=== PATIENT | male | born 1930 | race Caucasian/White ===

== ENCOUNTER 2017-10-13 14:35 | Inpatient (IN) ==
[2017-10-13] MEDS ORDERED: DIPH/TET/ACEL PERT BOOSTER VACCINE 0.5 ML VIAL IM ONE ×2 (15:03→17:08)
[2017-10-13] MEDS ORDERED: SODIUM CHLORIDE 0.9% 1,000 ML IV STA (15:07)
[2017-10-13 16:02] LABS: Basophils # 0.1 10*3/uL (0.0-0.2); Basophils % 0.7 % (0.0-0.8); Eosinophils # 0.2 10*3/uL (0.0-0.87); Eosinophils % 2.3 % (0.00-10.9); Hematocrit 40.7 VOL% (42.0-52.0); Hemoglobin 13.2 GM/DL (14.0-18.0); Immature Granulocytes % 0.5 %; Immature Granulocytes Absolute 0.04 #; Lymphocytes # 0.7 10*3/uL (1.4-4.0); Lymphocytes % 8.4 % (21.2-54.2); Mean Corpuscular HGB Conc 32.4 GM/DL (32-36); Mean Corpuscular Hemoglobin 32 PG (27-34); Mean Corpuscular Volume 98.8 FL (87-102); Mean Platelet Volume 12.8 FL (9.6-12.0); Monocytes # 0.8 10*3/uL (0.11-0.8); Monocytes % 9.4 % (1.7-12.7); Neutrophils # 6.9 10*3/uL (1.4-7.4); Neutrophils % 78.7 % (38.7-73.9); Platelet Count 110 T/CUMM (130-400); Red Blood Count 4.12 MC/CUMM (3.8-5.5); Red Cell Distribution Width 14.7 % (9.3-17.3); White Blood Count 8.8 T/CUMM (4-12)
[2017-10-13 16:12] LABS: INR 1.1; PT Patient Result 11.5 SECS; Partial Thromboplastin Time 22.2 SECS (0-40)
[2017-10-13 16:23] LABS: Alanine Aminotransferase 18 U/L (16-61); Albumin 3.4 G/DL (3.4-5.0); Alkaline Phosphatase 124 U/L (45-117); Aspartate Amino Transferase 33 U/L (0-37); Blood Urea Nitrogen 29 MG/DL (7-18); Calcium 8.7 MG/DL (8.5-10.1); Glucose 109 MG/DL (74-106); Osmolality,Calculated 289.1 MOS/KG (273-304); Potassium 4.6 MMOL/L (3.5-5.1); Sodium 142 MMOL/L (136-145); Total Protein 6.7 G/DL (6.4-8.3)
[2017-10-13] MEDS ORDERED: ACETAMINOPHEN 325 MG TABLET PO PRN (17:39)
[2017-10-13] MEDS ORDERED: ZALEPLON 5 MG CAPSULE PO PRN (17:39)
[2017-10-13] MEDS ORDERED: ONDANSETRON 4 MG/2 ML VIAL IV PRN (17:39)
[2017-10-13] MEDS: SODIUM CHLORIDE 0.9% 1,000 ML IV SCH (18:05)
[2017-10-13 18:15] LABS: Apearance,Urine CLEAR (Clear); Bilirubin,Urine Negative (Negative); Blood, Urine Negative (Negative); Glucose,Urine (UA) Negative (Negative); Ketones,Urine 5 mg/dL (Negative); Nitrite,Urine Negative (Negative); Protein,Urine Negative; RBC,Urine 1 /HPF (0-4); Urine Color Yellow (Yellow); Urine Specific Gravity 1.013 (1.001-1.035); Urine Urobilinogen < 2.0 EU/DL (0.2-1.0); WBC,Urine <1 /HPF (0-6)
[2017-10-13 18:15] LABS: Magnesium 2.3 MG/DL (1.8-2.4); Thyroid Stimulating Hormone 3.01 uIU/ml (0.358-3.74)
[2017-10-13] MEDS: CARBIDOPA/LEVODOPA CR 25-100 MG TABLET PO SCH (21:33)
[2017-10-13] MEDS: DONEPEZIL 10 MG TABLET PO SCH (21:33)
[2017-10-13] MEDS: PRIMIDONE 50 MG TABLET PO SCH (21:34)
[2017-10-13] MEDS: ENTACAPONE 200 MG TABLET PO SCH (21:34)
[2017-10-14 06:59] LABS: Calcium 7.7 MG/DL (8.5-10.1); Osmolality,Calculated 286.1 MOS/KG (273-304); Risk Ratio 2.22; VLDL CHOLESTEROL 10.6 MG/DL
[2017-10-14] MEDS: CARBIDOPA/LEVODOPA CR 25-100 MG TABLET PO SCH ×4 (10:38→21:56)
[2017-10-14] MEDS: ENTACAPONE 200 MG TABLET PO SCH ×4 (10:39→21:55)
[2017-10-14] MEDS: PANTOPRAZOLE 40 MG TABLET PO SCH (10:39)
[2017-10-14] MEDS: SODIUM CHLORIDE 0.9% 1,000 ML IV SCH ×2 (10:39→21:55)
[2017-10-14] MEDS: CARVEDILOL 3.125 MG TABLET PO SCH (21:55)
[2017-10-14] MEDS: DONEPEZIL 10 MG TABLET PO SCH (21:56)
[2017-10-14] MEDS: PRIMIDONE 50 MG TABLET PO SCH (21:56)
[2017-10-15 06:15] LABS: Basophils % 0.3 % (0.0-0.8); Hemoglobin 11.8 GM/DL (14.0-18.0); Immature Granulocytes % 0.6 %; Immature Granulocytes Absolute 0.09 #; Lymphocytes # 0.7 10*3/uL (1.4-4.0); Lymphocytes % 4.7 % (21.2-54.2); Mean Corpuscular HGB Conc 32.8 GM/DL (32-36); Mean Corpuscular Hemoglobin 31 PG (27-34); Mean Corpuscular Volume 95.5 FL (87-102); Mean Platelet Volume 11.9 FL (9.6-12.0); Monocytes # 1.4 10*3/uL (0.11-0.8); Monocytes % 9.2 % (1.7-12.7); Neutrophils # 13.3 10*3/uL (1.4-7.4); Neutrophils % 85.2 % (38.7-73.9); Platelet Count 164 T/CUMM (130-400); Red Blood Count 3.77 MC/CUMM (3.8-5.5); Red Cell Distribution Width 14.3 % (9.3-17.3); White Blood Count 15.6 T/CUMM (4-12)
[2017-10-15 06:45] LABS: Calcium 8.4 MG/DL (8.5-10.1); Osmolality,Calculated 288.4 MOS/KG (273-304); Potassium 5.2 MMOL/L (3.5-5.1)
[2017-10-15 06:58] LABS: Band Neutrophils 5 % (0-10); Lymphocytes 3 % (20-55); Segmented Neutrophils 83 % (50-85); Total Cells Counted 100
[2017-10-15 06:59] LABS: Hypochromasia 1+; Macrocytosis Slight; Platelet Estimate Adequate
[2017-10-15] MEDS: PANTOPRAZOLE 40 MG TABLET PO SCH (09:08)
[2017-10-15] MEDS: ENTACAPONE 200 MG TABLET PO SCH ×4 (09:08→22:42)
[2017-10-15] MEDS: CARBIDOPA/LEVODOPA CR 25-100 MG TABLET PO SCH ×4 (09:08→22:42)
[2017-10-15] MEDS: CARVEDILOL 3.125 MG TABLET PO SCH ×2 (09:08→22:42)
[2017-10-15 09:43] LABS: Hematocrit 33.6 VOL% (42.0-52.0); Hemoglobin 11.1 GM/DL (14.0-18.0)
[2017-10-15 10:06] LABS: Apearance,Urine Turbid (Clear); Bilirubin,Urine Negative (Negative); Blood, Urine Large mg/dL (Negative); Glucose,Urine (UA) Negative (Negative); Ketones,Urine Negative (Negative); Nitrite,Urine Negative (Negative); Protein,Urine >500 MG/DL; RBC,Urine 6203 /HPF (0-4); Urine Color Red (Yellow); Urine Urobilinogen 0.2 EU/DL (0.2-1.0); WBC,Urine 172 /HPF (0-6)
[2017-10-15] MEDS: cefTRIAXone 1,000 MG in SYRINGE 1 EACH IV SCH (10:37)
[2017-10-15] MEDS: SODIUM CHLORIDE 0.9% 1,000 ML IV SCH (14:52)
[2017-10-15] MEDS: ZINC OXIDE PASTE 113 GM TUBE TOP SCH ×2 (14:52→22:42)
[2017-10-15 16:49] LABS: Hematocrit 30.1 VOL% (42.0-52.0)
[2017-10-15] MEDS: DONEPEZIL 10 MG TABLET PO SCH (22:42)
[2017-10-15] MEDS: PRIMIDONE 50 MG TABLET PO SCH (22:42)
[2017-10-16 01:29] LABS: Hematocrit 28.6 VOL% (42.0-52.0); Hemoglobin 9.4 GM/DL (14.0-18.0)
[2017-10-16 01:30] LABS: Basophils # 0.1 10*3/uL (0.0-0.2); Basophils % 0.4 % (0.0-0.8); Eosinophils # 0.2 10*3/uL (0.0-0.87); Eosinophils % 1.1 % (0.00-10.9); Hematocrit 28.4 VOL% (42.0-52.0); Hemoglobin 9.4 GM/DL (14.0-18.0); Immature Granulocytes % 0.5 %; Immature Granulocytes Absolute 0.07 #; Lymphocytes % 7.3 % (21.2-54.2); Mean Corpuscular HGB Conc 33.1 GM/DL (32-36); Mean Corpuscular Hemoglobin 32 PG (27-34); Mean Corpuscular Volume 95.9 FL (87-102); Mean Platelet Volume 11.7 FL (9.6-12.0); Monocytes # 1.4 10*3/uL (0.11-0.8); Monocytes % 10.4 % (1.7-12.7); Neutrophils % 80.3 % (38.7-73.9); Platelet Count 132 T/CUMM (130-400); Red Blood Count 2.96 MC/CUMM (3.8-5.5); Red Cell Distribution Width 14.6 % (9.3-17.3); White Blood Count 13.6 T/CUMM (4-12)
[2017-10-16 01:48] LABS: Albumin 2.1 G/DL (3.4-5.0); Calcium 7.6 MG/DL (8.5-10.1); Osmolality,Calculated 292.8 MOS/KG (273-304); Phosphorous 3.2 MG/DL (2.5-4.9); Potassium 4.1 MMOL/L (3.5-5.1)
[2017-10-16] MEDS: SODIUM CHLORIDE 0.9% 1,000 ML IV SCH ×2 (04:12→13:48)
[2017-10-16] MEDS: ENTACAPONE 200 MG TABLET PO SCH ×4 (10:09→21:53)
[2017-10-16] MEDS: cefTRIAXone 1,000 MG in SYRINGE 1 EACH IV SCH (10:18)
[2017-10-16] MEDS: PANTOPRAZOLE 40 MG TABLET PO SCH (10:19)
[2017-10-16] MEDS: CARBIDOPA/LEVODOPA CR 25-100 MG TABLET PO SCH ×4 (10:19→21:53)
[2017-10-16] MEDS: CARVEDILOL 3.125 MG TABLET PO SCH ×2 (10:19→21:53)
[2017-10-16] MEDS: ZINC OXIDE PASTE 113 GM TUBE TOP SCH ×2 (10:19→21:53)
[2017-10-16] MEDS: CIPROFLOXACIN INJ 400 MG in PREMIX 1 EACH IV SCH (13:47)
[2017-10-16] MEDS: PRIMIDONE 50 MG TABLET PO SCH (21:52)
[2017-10-16] MEDS: DONEPEZIL 10 MG TABLET PO SCH (21:53)
[2017-10-17] MEDS: CIPROFLOXACIN INJ 400 MG in PREMIX 1 EACH IV SCH ×2 (01:39→14:09)
[2017-10-17 02:48] LABS: Basophils % 0.2 % (0.0-0.8); Eosinophils # 0.2 10*3/uL (0.0-0.87); Eosinophils % 1.7 % (0.00-10.9); Hematocrit 27.4 VOL% (42.0-52.0); Hemoglobin 8.9 GM/DL (14.0-18.0); Immature Granulocytes % 0.5 %; Immature Granulocytes Absolute 0.05 #; Lymphocytes # 1.1 10*3/uL (1.4-4.0); Lymphocytes % 9.9 % (21.2-54.2); Mean Corpuscular HGB Conc 32.5 GM/DL (32-36); Mean Corpuscular Hemoglobin 31 PG (27-34); Mean Corpuscular Volume 96.8 FL (87-102); Mean Platelet Volume 12.9 FL (9.6-12.0); Monocytes % 9.1 % (1.7-12.7); Neutrophils # 8.6 10*3/uL (1.4-7.4); Neutrophils % 78.6 % (38.7-73.9); Platelet Count 117 T/CUMM (130-400); Red Blood Count 2.83 MC/CUMM (3.8-5.5); Red Cell Distribution Width 14.5 % (9.3-17.3); White Blood Count 10.9 T/CUMM (4-12)
[2017-10-17 03:04] LABS: Calcium 7.5 MG/DL (8.5-10.1); Osmolality,Calculated 285.3 MOS/KG (273-304); Potassium 4.1 MMOL/L (3.5-5.1)
[2017-10-17] MEDS: SODIUM CHLORIDE 0.9% 1,000 ML IV SCH ×3 (10:25→11:28)
[2017-10-17] MEDS: ENTACAPONE 200 MG TABLET PO SCH ×4 (10:29→20:52)
[2017-10-17] MEDS: CARVEDILOL 3.125 MG TABLET PO SCH ×2 (10:29→20:52)
[2017-10-17] MEDS: PANTOPRAZOLE 40 MG TABLET PO SCH (10:29)
[2017-10-17] MEDS: CARBIDOPA/LEVODOPA CR 25-100 MG TABLET PO SCH ×4 (10:29→20:52)
[2017-10-17] MEDS: cefTRIAXone 1,000 MG in SYRINGE 1 EACH IV SCH (10:39)
[2017-10-17] MEDS: ZINC OXIDE PASTE 113 GM TUBE TOP SCH ×2 (20:51→20:53)
[2017-10-17] MEDS: DONEPEZIL 10 MG TABLET PO SCH (20:52)
[2017-10-17] MEDS: PRIMIDONE 50 MG TABLET PO SCH (20:52)
[2017-10-18] MEDS: CIPROFLOXACIN INJ 400 MG in PREMIX 1 EACH IV SCH ×2 (00:37→13:56)
[2017-10-18] MEDS: SODIUM CHLORIDE 0.9% 1,000 ML IV SCH ×2 (04:00→21:05)
[2017-10-18 05:01] LABS: Basophils # 0.1 10*3/uL (0.0-0.2); Basophils % 0.6 % (0.0-0.8); Eosinophils # 0.3 10*3/uL (0.0-0.87); Eosinophils % 3.3 % (0.00-10.9); Hematocrit 28.9 VOL% (42.0-52.0); Hemoglobin 9.3 GM/DL (14.0-18.0); Immature Granulocytes % 0.4 %; Immature Granulocytes Absolute 0.03 #; Lymphocytes # 1.1 10*3/uL (1.4-4.0); Lymphocytes % 13.6 % (21.2-54.2); Mean Corpuscular HGB Conc 32.2 GM/DL (32-36); Mean Corpuscular Hemoglobin 31 PG (27-34); Mean Corpuscular Volume 95.7 FL (87-102); Mean Platelet Volume 11.2 FL (9.6-12.0); Monocytes # 0.9 10*3/uL (0.11-0.8); Monocytes % 11.7 % (1.7-12.7); Neutrophils # 5.6 10*3/uL (1.4-7.4); Neutrophils % 70.4 % (38.7-73.9); Platelet Count 157 T/CUMM (130-400); Red Blood Count 3.02 MC/CUMM (3.8-5.5); Red Cell Distribution Width 14.1 % (9.3-17.3); White Blood Count 7.9 T/CUMM (4-12)
[2017-10-18 05:34] LABS: Calcium 7.7 MG/DL (8.5-10.1); Osmolality,Calculated 282.4 MOS/KG (273-304); Potassium 4.1 MMOL/L (3.5-5.1)
[2017-10-18] MEDS: ENTACAPONE 200 MG TABLET PO SCH ×4 (11:11→21:07)
[2017-10-18] MEDS: ZINC OXIDE PASTE 113 GM TUBE TOP SCH ×2 (11:11→21:08)
[2017-10-18] MEDS: CARBIDOPA/LEVODOPA CR 25-100 MG TABLET PO SCH ×4 (11:11→21:07)
[2017-10-18] MEDS: CARVEDILOL 3.125 MG TABLET PO SCH ×2 (11:11→21:07)
[2017-10-18] MEDS: PANTOPRAZOLE 40 MG TABLET PO SCH (11:11)
[2017-10-18] MEDS: cefTRIAXone 1,000 MG in SYRINGE 1 EACH IV SCH (11:12)
[2017-10-18] MEDS ORDERED: TAMSULOSIN 0.4 MG CAPSULE PO SCH (21:00)
[2017-10-18] MEDS: DONEPEZIL 10 MG TABLET PO SCH (21:06)
[2017-10-18] MEDS: PRIMIDONE 50 MG TABLET PO SCH (21:07)
[2017-10-19] MEDS: CIPROFLOXACIN INJ 400 MG in PREMIX 1 EACH IV SCH ×2 (01:55→14:45)
[2017-10-19] MEDS: CARVEDILOL 3.125 MG TABLET PO SCH (09:43)
[2017-10-19] MEDS: ZINC OXIDE PASTE 113 GM TUBE TOP SCH (09:43)
[2017-10-19] MEDS: PANTOPRAZOLE 40 MG TABLET PO SCH (09:43)
[2017-10-19] MEDS: cefTRIAXone 1,000 MG in SYRINGE 1 EACH IV SCH (09:43)
[2017-10-19] MEDS: CARBIDOPA/LEVODOPA CR 25-100 MG TABLET PO SCH ×2 (09:43→14:45)
[2017-10-19] MEDS: ENTACAPONE 200 MG TABLET PO SCH ×2 (09:43→14:45)
[2017-10-19] MEDS: SODIUM CHLORIDE 0.9% 1,000 ML IV SCH (14:52)
[2017-10-19 16:18] VITALS: BP 87/52
== END 2017-10-19 16:40 | DRG 299 ==
LOC: EDUNIT# → EDBD → N.EDINP 14:35 → N.ED 14:35 → SUATTDRO 17:38 → N.3E 19:51 → SUATTDRO 10-15 11:56
PROVIDERS: ADMIT Internal Medicine

== ENCOUNTER 2018-03-21 12:38 | Inpatient (IN) ==
[2018-03-21] MEDS ORDERED: SODIUM CHLORIDE 0.9% 500 ML IV STA (13:22)
[2018-03-21] MEDS ORDERED: SODIUM CHLORIDE 0.9% 250 ML IV STA (14:13)
[2018-03-21 14:25] LABS: Basophils % 0.3 % (0.0-0.8); Hematocrit 32.2 VOL% (42.0-52.0); Hemoglobin 10.2 GM/DL (14.0-18.0); Immature Granulocytes % 0.3 %; Immature Granulocytes Absolute 0.02 #; Lymphocytes # 0.3 10*3/uL (1.4-4.0); Lymphocytes % 3.7 % (21.2-54.2); Mean Corpuscular HGB Conc 31.7 GM/DL (32-36); Mean Corpuscular Hemoglobin 28 PG (27-34); Mean Corpuscular Volume 87.7 FL (87-102); Monocytes # 0.4 10*3/uL (0.11-0.8); Monocytes % 5.3 % (1.7-12.7); Neutrophils # 6.5 10*3/uL (1.4-7.4); Neutrophils % 90.4 % (38.7-73.9); Platelet Count 156 T/CUMM (130-400); Red Blood Count 3.67 MC/CUMM (3.8-5.5); Red Cell Distribution Width 18.5 % (9.3-17.3); White Blood Count 7.2 T/CUMM (4-12)
[2018-03-21 14:52] LABS: Alanine Aminotransferase < 9 U/L (16-61); Albumin 3.1 G/DL (3.4-5.0); Alkaline Phosphatase 113 U/L (45-117); Aspartate Amino Transferase 19 U/L (0-37); Blood Urea Nitrogen 42 MG/DL (7-18); Calcium 8.2 MG/DL (8.5-10.1); Glucose 166 MG/DL (74-106); Osmolality,Calculated 293.4 MOS/KG (273-304); Potassium 3.3 MMOL/L (3.5-5.1); Sodium 140 MMOL/L (136-145); Total Protein 6.7 G/DL (6.4-8.3); Troponin I Only < 0.015 NG/ML (0.00-0.045)
[2018-03-21] MEDS ORDERED: KETOROLAC 30 MG/1 ML VIAL IV STA (15:09)
[2018-03-21 15:27] LABS: Apearance,Urine Cloudy (Clear); Glucose,Urine (UA) Negative (Negative); Ketones,Urine ND mg/dL (Negative); Protein,Urine 100 MG/DL; Urine Color Yellow (Yellow); Urine Specific Gravity 1.005 (1.001-1.035)
[2018-03-21 15:28] LABS: Bilirubin,Urine Negative (Negative); Blood, Urine 50 mg/dL (Negative); Nitrite,Urine Negative (Negative); Squamous Epithelial Cell,Urine Moderate /HPF (0-10); Urine Urobilinogen 0.2 EU/DL (0.2-1.0); WBC,Urine 100-150 /HPF (0-6)
[2018-03-21] MEDS ORDERED: cefTRIAXone 1,000 MG in SODIUM CHLORIDE 0.9% 100 ML IV STA (15:50)
[2018-03-21 16:54] LABS: Lymphocytes 9 % (20-55); Segmented Neutrophils 81 % (50-85); Total Cells Counted 100
[2018-03-21 16:56] LABS: Hypochromasia Slight; Macrocytosis Slight; Platelet Estimate Adequate; Polychromasia Slight
[2018-03-21] MEDS ORDERED: GLUCAGON 1 MG VIAL IM PRN (17:57)
[2018-03-21] MEDS ORDERED: DEXTROSE 50% 25 GM/50 ML VIAL IV PRN (17:57)
[2018-03-21] MEDS ORDERED: ACETAMINOPHEN 325 MG TABLET PO PRN (17:57)
[2018-03-21] MEDS ORDERED: ONDANSETRON 4 MG/2 ML VIAL IV PRN (17:57)
[2018-03-21] MEDS ORDERED: LEVOFLOXACIN INJ 750 MG in PREMIX 1 EACH IV SCH (18:00)
[2018-03-21] MEDS: SODIUM CHLORIDE 0.9% 1,000 ML IV SCH (23:27)
[2018-03-21] MEDS: PIPERACILLIN/TAZOBACTAM 3,375 MG in SODIUM CHLORIDE 0.9% 100 ML IV SCH (23:28)
[2018-03-21] MEDS: CARBIDOPA/LEVODOPA CR 25-100 MG TABLET PO SCH (23:29)
[2018-03-21] MEDS: ASCORBIC ACID 500 MG TABLET PO SCH (23:29)
[2018-03-21] MEDS: TAMSULOSIN 0.4 MG CAPSULE PO SCH (23:29)
[2018-03-21] MEDS: DONEPEZIL 10 MG TABLET PO SCH (23:29)
[2018-03-21] MEDS: FINASTERIDE 5 MG TABLET PO SCH (23:29)
[2018-03-21] MEDS: ENTACAPONE 200 MG TABLET PO SCH (23:29)
[2018-03-21] MEDS: MEMANTINE 10 MG TABLET PO SCH (23:29)
[2018-03-21] MEDS: PRIMIDONE 50 MG TABLET PO SCH (23:30)
[2018-03-21] MEDS: CARVEDILOL 3.125 MG TABLET PO SCH (23:31)
[2018-03-21] MEDS: INSULIN REGULAR 100 UNIT/ML SUBCUT SCH (23:47)
[2018-03-22] MEDS: PIPERACILLIN/TAZOBACTAM 3,375 MG in SODIUM CHLORIDE 0.9% 100 ML IV SCH ×2 (04:58→17:54)
[2018-03-22 07:35] LABS: Basophils % 0.1 % (0.0-0.8); Hematocrit 27.2 VOL% (42.0-52.0); Hemoglobin 8.7 GM/DL (14.0-18.0); Immature Granulocytes % 0.4 %; Immature Granulocytes Absolute 0.03 #; Lymphocytes # 0.6 10*3/uL (1.4-4.0); Lymphocytes % 7.8 % (21.2-54.2); Mean Corpuscular Hemoglobin 28 PG (27-34); Mean Corpuscular Volume 86.3 FL (87-102); Mean Platelet Volume 11.5 FL (9.6-12.0); Monocytes # 1.2 10*3/uL (0.11-0.8); Monocytes % 14.4 % (1.7-12.7); Neutrophils # 6.2 10*3/uL (1.4-7.4); Neutrophils % 77.3 % (38.7-73.9); Platelet Count 131 T/CUMM (130-400); Red Blood Count 3.15 MC/CUMM (3.8-5.5); Red Cell Distribution Width 18.6 % (9.3-17.3)
[2018-03-22] MEDS ORDERED: FUROSEMIDE 40 MG TABLET PO SCH (08:00)
[2018-03-22 08:02] LABS: Potassium 3.1 MMOL/L (3.5-5.1)
[2018-03-22 08:15] LABS: Band Neutrophils 6 % (0-10); Lymphocytes 7 % (20-55); Segmented Neutrophils 79 % (50-85); Total Cells Counted 100
[2018-03-22 08:16] LABS: Hypochromasia Slight
[2018-03-22 08:17] LABS: Spherocytes Few
[2018-03-22 08:18] LABS: Platelet Estimate Decreased
[2018-03-22] MEDS: INSULIN REGULAR 100 UNIT/ML SUBCUT SCH ×4 (08:43→22:03)
[2018-03-22] MEDS: MEMANTINE 10 MG TABLET PO SCH ×2 (08:44→22:03)
[2018-03-22] MEDS: MAGNESIUM OXIDE 400 MG TABLET PO SCH (08:44)
[2018-03-22] MEDS: POTASSIUM CHLORIDE 20 MEQ TABLET PO SCH (08:45)
[2018-03-22] MEDS: PANTOPRAZOLE 40 MG TABLET PO SCH (08:46)
[2018-03-22] MEDS: ENTACAPONE 200 MG TABLET PO SCH ×4 (08:46→22:03)
[2018-03-22] MEDS: CARVEDILOL 3.125 MG TABLET PO SCH ×2 (08:48→22:04)
[2018-03-22] MEDS ORDERED: LEVOFLOXACIN INJ 500 MG in PREMIX 1 EACH IV SCH (09:00)
[2018-03-22] MEDS ORDERED: ALLOPURINOL 300 MG TABLET PO SCH (09:00)
[2018-03-22] MEDS ORDERED: TUBERCULIN SKIN TEST 0.1 ML SYRINGE INTRADERM ONE (12:33)
[2018-03-22] MEDS ORDERED: POTASSIUM CHLORIDE 20 MEQ TABLET PO ONE (12:34)
[2018-03-22] MEDS: ASCORBIC ACID 500 MG TABLET PO SCH ×2 (16:32→22:02)
[2018-03-22] MEDS: APIXABAN 5 MG TABLET PO SCH ×2 (16:55→22:02)
[2018-03-22] MEDS: CARBIDOPA/LEVODOPA CR 25-100 MG TABLET PO SCH ×4 (16:55→22:02)
[2018-03-22] MEDS ORDERED: VANCOMYCIN INJ 1,250 MG in SODIUM CHLORIDE 0.9% 250 ML IV SCH (17:00)
[2018-03-22] MEDS: ZINC OXIDE PASTE 113 GM TUBE TOP SCH ×2 (17:58→22:04)
[2018-03-22] MEDS: FINASTERIDE 5 MG TABLET PO SCH (22:02)
[2018-03-22] MEDS: TAMSULOSIN 0.4 MG CAPSULE PO SCH (22:02)
[2018-03-22] MEDS: PRIMIDONE 50 MG TABLET PO SCH (22:02)
[2018-03-22] MEDS: DONEPEZIL 10 MG TABLET PO SCH (22:02)
[2018-03-22] MEDS: SODIUM CHLORIDE 0.9% 1,000 ML IV SCH ×2 (22:08→22:14)
[2018-03-23] MEDS: PIPERACILLIN/TAZOBACTAM 3,375 MG in SODIUM CHLORIDE 0.9% 100 ML IV SCH ×3 (02:54→17:59)
[2018-03-23] MEDS: APIXABAN 5 MG TABLET PO SCH ×2 (10:16→22:15)
[2018-03-23] MEDS: PANTOPRAZOLE 40 MG TABLET PO SCH (10:17)
[2018-03-23] MEDS: POTASSIUM CHLORIDE 20 MEQ TABLET PO SCH (10:17)
[2018-03-23] MEDS: MAGNESIUM OXIDE 400 MG TABLET PO SCH (10:17)
[2018-03-23] MEDS: ENTACAPONE 200 MG TABLET PO SCH ×4 (10:17→22:13)
[2018-03-23] MEDS: ASCORBIC ACID 500 MG TABLET PO SCH ×2 (10:17→22:15)
[2018-03-23] MEDS: CARVEDILOL 3.125 MG TABLET PO SCH ×2 (10:17→22:14)
[2018-03-23] MEDS: INSULIN REGULAR 100 UNIT/ML SUBCUT SCH ×4 (10:17→22:15)
[2018-03-23] MEDS: CARBIDOPA/LEVODOPA CR 25-100 MG TABLET PO SCH ×4 (10:17→22:13)
[2018-03-23] MEDS: ZINC OXIDE PASTE 113 GM TUBE TOP SCH ×2 (10:18→22:16)
[2018-03-23] MEDS: MEMANTINE 10 MG TABLET PO SCH ×2 (10:20→22:15)
[2018-03-23] MEDS: PRIMIDONE 50 MG TABLET PO SCH (22:13)
[2018-03-23] MEDS: DONEPEZIL 10 MG TABLET PO SCH (22:13)
[2018-03-23] MEDS: TAMSULOSIN 0.4 MG CAPSULE PO SCH (22:15)
[2018-03-23] MEDS: FINASTERIDE 5 MG TABLET PO SCH (22:15)
[2018-03-24] MEDS: SODIUM CHLORIDE 0.9% 1,000 ML IV SCH ×3 (00:04→13:31)
[2018-03-24] MEDS: PIPERACILLIN/TAZOBACTAM 3,375 MG in SODIUM CHLORIDE 0.9% 100 ML IV SCH ×3 (01:40→17:13)
[2018-03-24 06:51] LABS: Basophils % 0.4 % (0.0-0.8); Eosinophils # 0.1 10*3/uL (0.0-0.87); Eosinophils % 1.7 % (0.00-10.9); Hematocrit 26.9 VOL% (42.0-52.0); Hemoglobin 8.3 GM/DL (14.0-18.0); Immature Granulocytes % 0.7 %; Immature Granulocytes Absolute 0.05 #; Lymphocytes # 0.9 10*3/uL (1.4-4.0); Mean Corpuscular HGB Conc 30.9 GM/DL (32-36); Mean Corpuscular Hemoglobin 27 PG (27-34); Mean Corpuscular Volume 87.9 FL (87-102); Monocytes # 1.5 10*3/uL (0.11-0.8); Monocytes % 20.6 % (1.7-12.7); Neutrophils # 4.7 10*3/uL (1.4-7.4); Neutrophils % 64.6 % (38.7-73.9); Platelet Count 124 T/CUMM (130-400); Red Blood Count 3.06 MC/CUMM (3.8-5.5); White Blood Count 7.2 T/CUMM (4-12)
[2018-03-24 07:16] LABS: Eosinophils 1 % (0-10); Hypochromasia 1+; Lymphocytes 12 % (20-55); Segmented Neutrophils 71 % (50-85); Total Cells Counted 100
[2018-03-24 07:17] LABS: Microcytosis Slight; Ovalocytes Slight; Platelet Estimate Adequate
[2018-03-24 07:31] LABS: Calcium 7.6 MG/DL (8.5-10.1); Osmolality,Calculated 279.1 MOS/KG (273-304); Potassium 4.3 MMOL/L (3.5-5.1)
[2018-03-24] MEDS: INSULIN REGULAR 100 UNIT/ML SUBCUT SCH ×4 (07:36→21:32)
[2018-03-24] MEDS: MEMANTINE 10 MG TABLET PO SCH ×2 (08:25→20:55)
[2018-03-24] MEDS: ZINC OXIDE PASTE 113 GM TUBE TOP SCH ×2 (08:25→20:57)
[2018-03-24] MEDS: CARBIDOPA/LEVODOPA CR 25-100 MG TABLET PO SCH ×4 (08:25→20:55)
[2018-03-24] MEDS: PANTOPRAZOLE 40 MG TABLET PO SCH (08:25)
[2018-03-24] MEDS: CARVEDILOL 3.125 MG TABLET PO SCH ×2 (08:25→20:54)
[2018-03-24] MEDS: ASCORBIC ACID 500 MG TABLET PO SCH ×2 (08:25→20:56)
[2018-03-24] MEDS: POTASSIUM CHLORIDE 20 MEQ TABLET PO SCH (08:25)
[2018-03-24] MEDS: ENTACAPONE 200 MG TABLET PO SCH ×4 (08:25→20:55)
[2018-03-24] MEDS: APIXABAN 5 MG TABLET PO SCH ×2 (08:25→20:55)
[2018-03-24] MEDS: MAGNESIUM OXIDE 400 MG TABLET PO SCH (08:25)
[2018-03-24] MEDS: DONEPEZIL 10 MG TABLET PO SCH (20:54)
[2018-03-24] MEDS: FINASTERIDE 5 MG TABLET PO SCH (20:54)
[2018-03-24] MEDS: TAMSULOSIN 0.4 MG CAPSULE PO SCH (20:54)
[2018-03-24] MEDS: PRIMIDONE 50 MG TABLET PO SCH (20:55)
[2018-03-25] MEDS: PIPERACILLIN/TAZOBACTAM 3,375 MG in SODIUM CHLORIDE 0.9% 100 ML IV SCH ×2 (01:47→10:55)
[2018-03-25] MEDS: SODIUM CHLORIDE 0.9% 1,000 ML IV SCH (07:03)
[2018-03-25] MEDS: CARVEDILOL 3.125 MG TABLET PO SCH (10:56)
[2018-03-25] MEDS: MAGNESIUM OXIDE 400 MG TABLET PO SCH (10:56)
[2018-03-25] MEDS: POTASSIUM CHLORIDE 20 MEQ TABLET PO SCH (10:56)
[2018-03-25] MEDS: CARBIDOPA/LEVODOPA CR 25-100 MG TABLET PO SCH (10:56)
[2018-03-25] MEDS: PANTOPRAZOLE 40 MG TABLET PO SCH (10:56)
[2018-03-25] MEDS: MEMANTINE 10 MG TABLET PO SCH (10:56)
[2018-03-25] MEDS: ASCORBIC ACID 500 MG TABLET PO SCH (10:56)
[2018-03-25] MEDS: APIXABAN 5 MG TABLET PO SCH (10:57)
[2018-03-25] MEDS: INSULIN REGULAR 100 UNIT/ML SUBCUT SCH ×2 (10:57→11:30)
[2018-03-25] MEDS: ZINC OXIDE PASTE 113 GM TUBE TOP SCH (10:57)
[2018-03-25] MEDS: ENTACAPONE 200 MG TABLET PO SCH (10:57)
[2018-03-25 11:22] VITALS: BP 103/70
== END 2018-03-25 13:02 | DRG 689 ==
LOC: N.ED 12:38 → N.EDINP 16:45 → SUATTDRO 16:45 → N.5E 18:46
PROVIDERS: ADMIT Internal Medicine; ATTEND Internal Medicine Cardiovascular Disease

== ENCOUNTER 2018-05-16 14:56 | Inpatient (IN) ==
[2018-05-16] MEDS ORDERED: PANTOPRAZOLE 40 MG VIAL IV STA (15:15)
[2018-05-16] MEDS ORDERED: ONDANSETRON 4 MG/2 ML VIAL IV STA (15:15)
[2018-05-16] MEDS ORDERED: SODIUM CHLORIDE 0.9% 500 ML IV STA (15:34)
[2018-05-16 16:22] LABS: Basophils % 0.1 % (0.0-0.8); Eosinophils % 0.3 % (0.00-10.9); Hematocrit 16.1 VOL% (42.0-52.0); Immature Granulocytes % 0.8 %; Immature Granulocytes Absolute 0.06 #; Lymphocytes # 0.8 10*3/uL (1.4-4.0); Lymphocytes % 11.2 % (21.2-54.2); Mean Corpuscular HGB Conc 31.1 GM/DL (32-36); Mean Corpuscular Hemoglobin 26 PG (27-34); Mean Corpuscular Volume 84.3 FL (87-102); Mean Platelet Volume 10.3 FL (9.6-12.0); Monocytes # 0.6 10*3/uL (0.11-0.8); Monocytes % 8.5 % (1.7-12.7); Neutrophils # 5.9 10*3/uL (1.4-7.4); Neutrophils % 79.1 % (38.7-73.9); Platelet Count 186 T/CUMM (130-400); Red Blood Count 1.91 MC/CUMM (3.8-5.5); Red Cell Distribution Width 17.7 % (9.3-17.3); White Blood Count 7.5 T/CUMM (4-12)
[2018-05-16 16:29] LABS: INR 1.2; PT Patient Result 12.5 SECS; Partial Thromboplastin Time 30.3 SECS (0-40)
[2018-05-16] MEDS ORDERED: PROMETHAZINE 25 MG/1 ML VIAL IM PRN (16:30)
[2018-05-16] MEDS ORDERED: ONDANSETRON 4 MG/2 ML VIAL IV PRN (16:30)
[2018-05-16] MEDS ORDERED: ACETAMINOPHEN 325 MG TABLET PO PRN ×2 (16:30→16:34)
[2018-05-16 16:37] LABS: Alanine Aminotransferase < 6 U/L (16-61); Albumin 2.7 G/DL (3.4-5.0); Alkaline Phosphatase 107 U/L (45-117); Aspartate Amino Transferase 15 U/L (0-37); Blood Urea Nitrogen 93 MG/DL (7-18); Calcium 7.7 MG/DL (8.5-10.1); Glucose 149 MG/DL (74-106); Osmolality,Calculated 306.7 MOS/KG (273-304); Potassium 3.2 MMOL/L (3.5-5.1); Sodium 138 MMOL/L (136-145); Total Protein 6.2 G/DL (6.4-8.3)
[2018-05-16] MEDS ORDERED: SODIUM CHLORIDE 0.9% 1,000 ML IV PRN (16:59)
[2018-05-16 17:06] LABS: Thyroid Stimulating Hormone 3.27 uIU/ml (0.358-3.74)
[2018-05-16 17:24] LABS: % Iron Saturation 4.2 % (18-50); Ferritin 32.8 ng/ml (26-388)
[2018-05-16] MEDS ORDERED: DEXTROSE 50% 25 GM/50 ML VIAL IV PRN (17:45)
[2018-05-16] MEDS ORDERED: GLUCAGON 1 MG VIAL IM PRN (17:45)
[2018-05-16] MEDS: DONEPEZIL 10 MG TABLET PO SCH (20:31)
[2018-05-16] MEDS: ENTACAPONE 200 MG TABLET PO SCH (20:31)
[2018-05-16] MEDS: FUROSEMIDE 40 MG TABLET PO SCH (20:31)
[2018-05-16] MEDS: SODIUM CHLORIDE 0.9% 1,000 ML IV SCH (20:31)
[2018-05-16] MEDS: CARVEDILOL 3.125 MG TABLET PO SCH (20:32)
[2018-05-16] MEDS: INSULIN LISPRO 100 UNIT/ML SUBCUT SCH (20:32)
[2018-05-16] MEDS: TAMSULOSIN 0.4 MG CAPSULE PO SCH (20:32)
[2018-05-16] MEDS: MEMANTINE 10 MG TABLET PO SCH (20:33)
[2018-05-16] MEDS: PRIMIDONE 50 MG TABLET PO SCH (20:33)
[2018-05-16] MEDS: FINASTERIDE 5 MG TABLET PO SCH (20:33)
[2018-05-16] MEDS: ALLOPURINOL 300 MG TABLET PO SCH (20:34)
[2018-05-16] MEDS: ASCORBIC ACID 500 MG TABLET PO SCH (20:34)
[2018-05-16] MEDS: CARBIDOPA/LEVODOPA CR 25-100 MG TABLET PO SCH (20:34)
[2018-05-16] MEDS: PANTOPRAZOLE 40 MG VIAL IV SCH (20:34)
[2018-05-16 21:20] LABS: Hematocrit 15.4 VOL% (42.0-52.0); Hemoglobin 4.8 GM/DL (14.0-18.0)
[2018-05-17] MEDS: POTASSIUM CHLORIDE 20 MEQ TABLET PO PRN ×4 (01:49→07:02)
[2018-05-17 06:00] LABS: Basophils % 0.2 % (0.0-0.8); Eosinophils # 0.1 10*3/uL (0.0-0.87); Eosinophils % 1.4 % (0.00-10.9); Hematocrit 20.9 VOL% (42.0-52.0); Hemoglobin 6.9 GM/DL (14.0-18.0); Immature Granulocytes % 0.3 %; Immature Granulocytes Absolute 0.02 #; Lymphocytes # 1.3 10*3/uL (1.4-4.0); Lymphocytes % 20.6 % (21.2-54.2); Mean Corpuscular Hemoglobin 28 PG (27-34); Mean Corpuscular Volume 84.6 FL (87-102); Mean Platelet Volume 10.6 FL (9.6-12.0); Monocytes # 0.8 10*3/uL (0.11-0.8); Monocytes % 12.5 % (1.7-12.7); Neutrophils # 4.1 10*3/uL (1.4-7.4); Platelet Count 165 T/CUMM (130-400); Red Blood Count 2.47 MC/CUMM (3.8-5.5); Red Cell Distribution Width 16.6 % (9.3-17.3); White Blood Count 6.3 T/CUMM (4-12)
[2018-05-17 06:19] LABS: Alanine Aminotransferase < 6 U/L (16-61); Albumin 2.6 G/DL (3.4-5.0); Alkaline Phosphatase 88 U/L (45-117); Aspartate Amino Transferase 18 U/L (0-37); Blood Urea Nitrogen 90 MG/DL (7-18); Calcium 7.9 MG/DL (8.5-10.1); Cholesterol 90 MG/DL (50-200); Glucose 133 MG/DL (74-106); HDL Cholesterol 45 MG/DL (40-60); Osmolality,Calculated 310.3 MOS/KG (273-304); Potassium 3.7 MMOL/L (3.5-5.1); Sodium 141 MMOL/L (136-145); Triglycerides 65 MG/DL (2-150)
[2018-05-17] MEDS ORDERED: SODIUM CHLORIDE 0.9% 1,000 ML IV PRN (06:22)
[2018-05-17] MEDS: INSULIN LISPRO 100 UNIT/ML SUBCUT SCH ×4 (07:53→20:30)
[2018-05-17] MEDS ORDERED: FUROSEMIDE 40 MG/4 ML VIAL IV ONE ×2 (07:54→13:44)
[2018-05-17 08:00] LABS: Hematocrit 19.3 VOL% (42.0-52.0)
[2018-05-17 08:02] LABS: Hemoglobin 6.3 GM/DL (14.0-18.0)
[2018-05-17] MEDS: MAGNESIUM OXIDE 400 MG TABLET PO SCH (09:10)
[2018-05-17] MEDS: FUROSEMIDE 40 MG TABLET PO SCH ×2 (09:12→18:14)
[2018-05-17] MEDS: CARVEDILOL 3.125 MG TABLET PO SCH ×2 (09:12→20:30)
[2018-05-17] MEDS: MEMANTINE 10 MG TABLET PO SCH ×2 (09:12→20:31)
[2018-05-17] MEDS: POTASSIUM CHLORIDE 20 MEQ TABLET PO SCH (09:12)
[2018-05-17] MEDS: ASCORBIC ACID 500 MG TABLET PO SCH ×2 (09:12→20:31)
[2018-05-17] MEDS: ENTACAPONE 200 MG TABLET PO SCH ×4 (09:12→20:30)
[2018-05-17] MEDS: PANTOPRAZOLE 40 MG VIAL IV SCH ×2 (09:16→20:32)
[2018-05-17] MEDS: SODIUM CHLORIDE 0.9% 1,000 ML IV SCH (09:21)
[2018-05-17] MEDS: CARBIDOPA/LEVODOPA CR 25-100 MG TABLET PO SCH ×4 (09:26→20:31)
[2018-05-17] MEDS ORDERED: CALCIUM GLUCONATE 1,000 MG in SODIUM CHLORIDE 0.9% 100 ML IV ONE (15:00)
[2018-05-17 20:08] LABS: Hematocrit 24.3 VOL% (42.0-52.0); Hemoglobin 8.1 GM/DL (14.0-18.0)
[2018-05-17] MEDS ORDERED: METOPROLOL TARTRATE 25 MG TABLET PO ONE (20:18)
[2018-05-17] MEDS: DONEPEZIL 10 MG TABLET PO SCH (20:28)
[2018-05-17] MEDS: DILTIAZEM 30 MG TABLET PO SCH (20:29)
[2018-05-17] MEDS: PRIMIDONE 50 MG TABLET PO SCH (20:30)
[2018-05-17] MEDS: ALLOPURINOL 300 MG TABLET PO SCH (20:31)
[2018-05-18 00:43] LABS: Hematocrit 22.5 VOL% (42.0-52.0); Hemoglobin 7.6 GM/DL (14.0-18.0)
[2018-05-18 00:44] LABS: Basophils % 0.1 % (0.0-0.8); Hematocrit 23.2 VOL% (42.0-52.0); Hemoglobin 7.6 GM/DL (14.0-18.0); Immature Granulocytes % 0.9 %; Immature Granulocytes Absolute 0.16 #; Lymphocytes # 0.8 10*3/uL (1.4-4.0); Lymphocytes % 4.4 % (21.2-54.2); Mean Corpuscular HGB Conc 32.8 GM/DL (32-36); Mean Corpuscular Hemoglobin 28 PG (27-34); Mean Corpuscular Volume 86.2 FL (87-102); Mean Platelet Volume 10.6 FL (9.6-12.0); Monocytes # 1.5 10*3/uL (0.11-0.8); Monocytes % 8.2 % (1.7-12.7); Neutrophils # 15.8 10*3/uL (1.4-7.4); Neutrophils % 86.4 % (38.7-73.9); Platelet Count 145 T/CUMM (130-400); Red Blood Count 2.69 MC/CUMM (3.8-5.5); Red Cell Distribution Width 16.5 % (9.3-17.3); White Blood Count 18.3 T/CUMM (4-12)
[2018-05-18 00:54] LABS: Calcium 7.9 MG/DL (8.5-10.1); Osmolality,Calculated 306.4 MOS/KG (273-304); Potassium 3.5 MMOL/L (3.5-5.1)
[2018-05-18] MEDS: SODIUM CHLORIDE 0.9% 1,000 ML IV SCH ×3 (01:05→19:30)
[2018-05-18 05:05] LABS: Band Neutrophils 9 % (0-10); Lymphocytes 3 % (20-55); Platelet Estimate Decreased; Segmented Neutrophils 85 % (50-85); Total Cells Counted 100
[2018-05-18] MEDS ORDERED: SODIUM CHLORIDE 0.9% 1,000 ML IV PRN ×2 (07:41→07:43)
[2018-05-18] MEDS ORDERED: FUROSEMIDE 20 MG/2 ML VIAL IV PRN (07:43)
[2018-05-18] MEDS: INSULIN LISPRO 100 UNIT/ML SUBCUT SCH ×4 (07:56→20:37)
[2018-05-18] MEDS ORDERED: ALBUMIN 25% 25 GM in PREMIX 1 EACH IV ONE (07:57)
[2018-05-18 08:15] LABS: Hematocrit 27.7 VOL% (42.0-52.0)
[2018-05-18] MEDS ORDERED: ETOMIDATE 20 MG/10 ML VIAL IV ONE (08:45)
[2018-05-18] MEDS: CARBIDOPA/LEVODOPA CR 25-100 MG TABLET PO SCH ×4 (09:00→20:22)
[2018-05-18] MEDS: ENTACAPONE 200 MG TABLET PO SCH ×4 (09:00→20:22)
[2018-05-18] MEDS: DESITIN 4OZ/NYSTATIN 15 GRAM MIXTURE PASTE TOP SCH ×2 (10:15→20:33)
[2018-05-18] MEDS: CARVEDILOL 3.125 MG TABLET PO SCH (10:51)
[2018-05-18] MEDS: FUROSEMIDE 40 MG TABLET PO SCH (10:58)
[2018-05-18] MEDS: PANTOPRAZOLE 40 MG VIAL IV SCH ×2 (11:11→20:31)
[2018-05-18] MEDS: POTASSIUM CHLORIDE 20 MEQ TABLET PO SCH (11:12)
[2018-05-18] MEDS: ASCORBIC ACID 500 MG TABLET PO SCH ×2 (11:12→20:22)
[2018-05-18] MEDS: MAGNESIUM OXIDE 400 MG TABLET PO SCH (11:12)
[2018-05-18] MEDS: BISACODYL 5 MG TABLET PO SCH ×2 (11:12→16:54)
[2018-05-18] MEDS: MEMANTINE 10 MG TABLET PO SCH ×2 (11:13→20:17)
[2018-05-18] MEDS: DILTIAZEM 30 MG TABLET PO SCH (11:13)
[2018-05-18] MEDS: PHENYLEPHRINE DRIP 40 MG/250 ML PREMIX IV PRN ×2 (11:17→19:42)
[2018-05-18 12:00] LABS: Hematocrit 28.2 VOL% (42.0-52.0); Hemoglobin 9.3 GM/DL (14.0-18.0)
[2018-05-18] MEDS: POTASSIUM CHLORIDE 20 MEQ TABLET PO PRN (13:05)
[2018-05-18 15:21] LABS: Apearance,Urine CLEAR (Clear); Bacteria,Urine Occasional /HPF (Few); Bilirubin,Urine Negative (Negative); Blood, Urine Negative (Negative); Glucose,Urine (UA) Negative (Negative); Hyaline Casts,Urine 1 /LPF (0-3); Ketones,Urine Negative (Negative); Mucus,Urine Occasional /LPF (Occasional); Nitrite,Urine Negative (Negative); Protein,Urine Negative; RBC,Urine 4 /HPF (0-4); Urine Color Yellow (Yellow); Urine Specific Gravity 1.008 (1.001-1.035); Urine Urobilinogen < 2.0 EU/DL (0.2-1.0); WBC,Urine 1 /HPF (0-6)
[2018-05-18 15:43] LABS: Hematocrit 30.6 VOL% (42.0-52.0); Hemoglobin 9.9 GM/DL (14.0-18.0)
[2018-05-18] MEDS ORDERED: POLYETHYLENE GLYCOL 3350/ELECTROLYTES 4,000 ML BOTTLE PO ONE (16:00)
[2018-05-18 19:52] LABS: Hematocrit 31.9 VOL% (42.0-52.0); Hemoglobin 10.5 GM/DL (14.0-18.0)
[2018-05-18] MEDS: PRIMIDONE 50 MG TABLET PO SCH (20:17)
[2018-05-18] MEDS: ALLOPURINOL 300 MG TABLET PO SCH (20:22)
[2018-05-18] MEDS: DONEPEZIL 10 MG TABLET PO SCH (20:24)
[2018-05-18] MEDS ORDERED: MAGNESIUM CITRATE 300 ML BOTTLE PO ONE (21:00)
[2018-05-19 01:13] LABS: Basophils % 0.1 % (0.0-0.8); Eosinophils % 0.1 % (0.00-10.9); Hematocrit 29.1 VOL% (42.0-52.0); Hemoglobin 9.3 GM/DL (14.0-18.0); Immature Granulocytes % 0.6 %; Immature Granulocytes Absolute 0.12 #; Lymphocytes # 0.7 10*3/uL (1.4-4.0); Lymphocytes % 3.8 % (21.2-54.2); Mean Corpuscular Hemoglobin 28 PG (27-34); Mean Corpuscular Volume 87.4 FL (87-102); Monocytes # 1.4 10*3/uL (0.11-0.8); Monocytes % 7.6 % (1.7-12.7); Neutrophils # 16.2 10*3/uL (1.4-7.4); Neutrophils % 87.8 % (38.7-73.9); Platelet Count 163 T/CUMM (130-400); Red Blood Count 3.33 MC/CUMM (3.8-5.5); Red Cell Distribution Width 16.8 % (9.3-17.3); White Blood Count 18.5 T/CUMM (4-12)
[2018-05-19 01:27] LABS: Calcium 7.6 MG/DL (8.5-10.1); Osmolality,Calculated 306.8 MOS/KG (273-304); Potassium 3.2 MMOL/L (3.5-5.1)
[2018-05-19 02:08] LABS: Band Neutrophils 3 % (0-10); Lymphocytes 2 % (20-55); Myelocytes 1 %; Segmented Neutrophils 90 % (50-85); Total Cells Counted 100
[2018-05-19 02:09] LABS: Anisocytosis 1+; Platelet Estimate Adequate
[2018-05-19] MEDS: BISACODYL 5 MG TABLET PO SCH (02:35)
[2018-05-19] MEDS: POTASSIUM CHLORIDE 20 MEQ TABLET PO PRN ×3 (02:36→06:50)
[2018-05-19] MEDS: PHENYLEPHRINE DRIP 40 MG/250 ML PREMIX IV PRN ×3 (02:40→16:41)
[2018-05-19] MEDS: SODIUM CHLORIDE 0.9% 1,000 ML IV SCH ×2 (03:17→10:22)
[2018-05-19 05:31] LABS: Hematocrit 30.6 VOL% (42.0-52.0); Hemoglobin 9.7 GM/DL (14.0-18.0)
[2018-05-19] MEDS ORDERED: PHENYLEPHRINE 1 MG/10 ML SYRINGE IV ONE (08:28)
[2018-05-19] MEDS ORDERED: PROPOFOL 200 MG/20 ML VIAL IV ONE (08:28)
[2018-05-19] MEDS ORDERED: LIDOCAINE 2% 5 ML VIAL ONE (08:28)
[2018-05-19] MEDS ORDERED: ETOMIDATE 20 MG/10 ML VIAL IV ONE (08:28)
[2018-05-19] MEDS: ENTACAPONE 200 MG TABLET PO SCH ×4 (10:53→22:57)
[2018-05-19] MEDS: INSULIN LISPRO 100 UNIT/ML SUBCUT SCH ×4 (10:53→22:58)
[2018-05-19] MEDS: POTASSIUM CHLORIDE 20 MEQ TABLET PO SCH (10:54)
[2018-05-19] MEDS: CARBIDOPA/LEVODOPA CR 25-100 MG TABLET PO SCH ×4 (10:54→22:59)
[2018-05-19] MEDS: MEMANTINE 10 MG TABLET PO SCH ×2 (10:54→22:59)
[2018-05-19] MEDS: ASCORBIC ACID 500 MG TABLET PO SCH ×2 (10:54→23:00)
[2018-05-19] MEDS: MAGNESIUM OXIDE 400 MG TABLET PO SCH (10:54)
[2018-05-19 12:55] LABS: Hematocrit 30.9 VOL% (42.0-52.0); Hemoglobin 9.7 GM/DL (14.0-18.0)
[2018-05-19] MEDS: PANTOPRAZOLE 40 MG VIAL IV SCH ×2 (14:46→21:37)
[2018-05-19] MEDS: DESITIN 4OZ/NYSTATIN 15 GRAM MIXTURE PASTE TOP SCH ×2 (14:47→22:59)
[2018-05-19 15:28] LABS: Hematocrit 32.1 VOL% (42.0-52.0); Hemoglobin 10.1 GM/DL (14.0-18.0)
[2018-05-19 18:21] LABS: Hematocrit 31.7 VOL% (42.0-52.0); Hemoglobin 9.9 GM/DL (14.0-18.0)
[2018-05-19 21:42] LABS: Hematocrit 32.3 VOL% (42.0-52.0)
[2018-05-19] MEDS: TAMSULOSIN 0.4 MG CAPSULE PO SCH (22:57)
[2018-05-19] MEDS: DONEPEZIL 10 MG TABLET PO SCH (22:57)
[2018-05-19] MEDS: PRIMIDONE 50 MG TABLET PO SCH (22:59)
[2018-05-19] MEDS: FINASTERIDE 5 MG TABLET PO SCH (22:59)
[2018-05-19] MEDS: ALLOPURINOL 300 MG TABLET PO SCH (23:00)
[2018-05-20] MEDS: SODIUM CHLORIDE 0.9% 1,000 ML IV SCH ×3 (02:00→09:31)
[2018-05-20] MEDS: PHENYLEPHRINE DRIP 40 MG/250 ML PREMIX IV PRN ×2 (02:10→07:42)
[2018-05-20 04:30] LABS: Basophils % 0.3 % (0.0-0.8); Eosinophils # 0.1 10*3/uL (0.0-0.87); Eosinophils % 0.5 % (0.00-10.9); Hematocrit 31.4 VOL% (42.0-52.0); Hemoglobin 9.7 GM/DL (14.0-18.0); Immature Granulocytes % 0.4 %; Immature Granulocytes Absolute 0.04 #; Lymphocytes # 0.9 10*3/uL (1.4-4.0); Lymphocytes % 9.3 % (21.2-54.2); Mean Corpuscular HGB Conc 30.9 GM/DL (32-36); Mean Corpuscular Hemoglobin 28 PG (27-34); Mean Corpuscular Volume 89.7 FL (87-102); Mean Platelet Volume 11.3 FL (9.6-12.0); Monocytes # 1.1 10*3/uL (0.11-0.8); Neutrophils # 7.6 10*3/uL (1.4-7.4); Neutrophils % 78.5 % (38.7-73.9); Platelet Count 172 T/CUMM (130-400); Red Cell Distribution Width 17.4 % (9.3-17.3); White Blood Count 9.6 T/CUMM (4-12)
[2018-05-20 05:05] LABS: Calcium 8.2 MG/DL (8.5-10.1); Osmolality,Calculated 307.1 MOS/KG (273-304); Potassium 3.4 MMOL/L (3.5-5.1)
[2018-05-20] MEDS: POTASSIUM CHLORIDE RIDER 10 MEQ in PREMIX 1 EACH IV PRN ×3 (07:35→12:31)
[2018-05-20] MEDS: INSULIN LISPRO 100 UNIT/ML SUBCUT SCH ×4 (08:53→20:23)
[2018-05-20] MEDS: MEMANTINE 10 MG TABLET PO SCH ×2 (09:12→20:21)
[2018-05-20] MEDS: POTASSIUM CHLORIDE 20 MEQ TABLET PO SCH (09:12)
[2018-05-20] MEDS: MAGNESIUM OXIDE 400 MG TABLET PO SCH (09:12)
[2018-05-20] MEDS: ENTACAPONE 200 MG TABLET PO SCH ×4 (09:12→20:20)
[2018-05-20] MEDS: ASCORBIC ACID 500 MG TABLET PO SCH ×2 (09:13→20:20)
[2018-05-20] MEDS: CARBIDOPA/LEVODOPA CR 25-100 MG TABLET PO SCH ×4 (09:13→20:20)
[2018-05-20] MEDS ORDERED: SODIUM CHLORIDE 23.4% CONC INJ 38.5 MEQ in STERILE WATER INJ 1,000 ML IV SCH (09:30)
[2018-05-20] MEDS: PANTOPRAZOLE 40 MG VIAL IV SCH ×2 (09:33→21:05)
[2018-05-20] MEDS: DEXTROSE 5% NACL 0.45% 1,000 ML IV SCH ×2 (09:44→17:57)
[2018-05-20] MEDS: DESITIN 4OZ/NYSTATIN 15 GRAM MIXTURE PASTE TOP SCH ×2 (11:19→21:05)
[2018-05-20] MEDS: DONEPEZIL 10 MG TABLET PO SCH (20:20)
[2018-05-20] MEDS: FINASTERIDE 5 MG TABLET PO SCH (20:21)
[2018-05-20] MEDS: ALLOPURINOL 300 MG TABLET PO SCH (20:21)
[2018-05-20] MEDS: PRIMIDONE 50 MG TABLET PO SCH (20:22)
[2018-05-20] MEDS: TAMSULOSIN 0.4 MG CAPSULE PO SCH (20:25)
[2018-05-21] MEDS: DEXTROSE 5% NACL 0.45% 1,000 ML IV SCH ×3 (02:02→22:20)
[2018-05-21] MEDS: DILTIAZEM 30 MG TABLET PO SCH ×3 (03:27→20:47)
[2018-05-21 04:30] LABS: Basophils % 0.4 % (0.0-0.8); Eosinophils # 0.2 10*3/uL (0.0-0.87); Eosinophils % 3.3 % (0.00-10.9); Hematocrit 28.6 VOL% (42.0-52.0); Hemoglobin 8.7 GM/DL (14.0-18.0); Immature Granulocytes % 0.7 %; Immature Granulocytes Absolute 0.05 #; Lymphocytes # 0.7 10*3/uL (1.4-4.0); Lymphocytes % 9.7 % (21.2-54.2); Mean Corpuscular HGB Conc 30.4 GM/DL (32-36); Mean Corpuscular Hemoglobin 28 PG (27-34); Mean Corpuscular Volume 90.8 FL (87-102); Mean Platelet Volume 10.7 FL (9.6-12.0); Monocytes # 0.7 10*3/uL (0.11-0.8); Monocytes % 9.8 % (1.7-12.7); Neutrophils # 5.5 10*3/uL (1.4-7.4); Neutrophils % 76.1 % (38.7-73.9); Platelet Count 144 T/CUMM (130-400); Red Blood Count 3.15 MC/CUMM (3.8-5.5); Red Cell Distribution Width 16.9 % (9.3-17.3); White Blood Count 7.3 T/CUMM (4-12)
[2018-05-21 04:37] LABS: Calcium 7.5 MG/DL (8.5-10.1); Osmolality,Calculated 295.8 MOS/KG (273-304); Potassium 3.1 MMOL/L (3.5-5.1)
[2018-05-21] MEDS: POTASSIUM CHLORIDE 20 MEQ TABLET PO PRN ×4 (07:13→13:00)
[2018-05-21] MEDS: INSULIN LISPRO 100 UNIT/ML SUBCUT SCH ×4 (08:33→20:48)
[2018-05-21] MEDS: MEMANTINE 10 MG TABLET PO SCH ×2 (09:30→20:48)
[2018-05-21] MEDS: POTASSIUM CHLORIDE 20 MEQ TABLET PO SCH (09:30)
[2018-05-21] MEDS: CARBIDOPA/LEVODOPA CR 25-100 MG TABLET PO SCH ×4 (09:30→20:48)
[2018-05-21] MEDS: ENTACAPONE 200 MG TABLET PO SCH ×4 (09:30→20:47)
[2018-05-21] MEDS: MAGNESIUM OXIDE 400 MG TABLET PO SCH (09:31)
[2018-05-21] MEDS: ASCORBIC ACID 500 MG TABLET PO SCH ×2 (09:31→20:48)
[2018-05-21] MEDS: DESITIN 4OZ/NYSTATIN 15 GRAM MIXTURE PASTE TOP SCH ×2 (09:32→20:48)
[2018-05-21] MEDS: CARVEDILOL 3.125 MG TABLET PO SCH ×2 (09:32→20:47)
[2018-05-21] MEDS: PANTOPRAZOLE 40 MG VIAL IV SCH ×2 (09:33→20:48)
[2018-05-21] MEDS ORDERED: MAGNESIUM SULF RIDER 2 GM in PREMIX 1 EACH IV PRN (11:18)
[2018-05-21] MEDS: TAMSULOSIN 0.4 MG CAPSULE PO SCH (20:47)
[2018-05-21] MEDS: DONEPEZIL 10 MG TABLET PO SCH (20:47)
[2018-05-21] MEDS: MAGNESIUM CHLORIDE 64 MG TABLET PO SCH (20:48)
[2018-05-21] MEDS: ALLOPURINOL 300 MG TABLET PO SCH (20:48)
[2018-05-21] MEDS: FINASTERIDE 5 MG TABLET PO SCH (20:48)
[2018-05-21] MEDS: PRIMIDONE 50 MG TABLET PO SCH (20:48)
[2018-05-22 04:40] LABS: Basophils % 0.5 % (0.0-0.8); Eosinophils # 0.4 10*3/uL (0.0-0.87); Eosinophils % 7.2 % (0.00-10.9); Hematocrit 29.7 VOL% (42.0-52.0); Hemoglobin 8.7 GM/DL (14.0-18.0); Immature Granulocytes % 0.5 %; Immature Granulocytes Absolute 0.03 #; Lymphocytes # 0.8 10*3/uL (1.4-4.0); Lymphocytes % 13.2 % (21.2-54.2); Mean Corpuscular HGB Conc 29.3 GM/DL (32-36); Mean Corpuscular Hemoglobin 27 PG (27-34); Mean Corpuscular Volume 91.7 FL (87-102); Mean Platelet Volume 11.3 FL (9.6-12.0); Monocytes # 0.7 10*3/uL (0.11-0.8); Monocytes % 12.1 % (1.7-12.7); Neutrophils # 4.1 10*3/uL (1.4-7.4); Neutrophils % 66.5 % (38.7-73.9); Platelet Count 149 T/CUMM (130-400); Red Blood Count 3.24 MC/CUMM (3.8-5.5); Red Cell Distribution Width 16.8 % (9.3-17.3); White Blood Count 6.1 T/CUMM (4-12)
[2018-05-22] MEDS: PANTOPRAZOLE 40 MG VIAL IV SCH ×2 (09:13→20:13)
[2018-05-22] MEDS: ENTACAPONE 200 MG TABLET PO SCH ×4 (09:14→20:16)
[2018-05-22] MEDS: CARVEDILOL 3.125 MG TABLET PO SCH ×3 (09:14→20:20)
[2018-05-22] MEDS: ASCORBIC ACID 500 MG TABLET PO SCH ×2 (09:14→20:16)
[2018-05-22] MEDS: CARBIDOPA/LEVODOPA CR 25-100 MG TABLET PO SCH ×4 (09:14→20:16)
[2018-05-22] MEDS: MAGNESIUM CHLORIDE 64 MG TABLET PO SCH ×2 (09:14→20:15)
[2018-05-22] MEDS: DESITIN 4OZ/NYSTATIN 15 GRAM MIXTURE PASTE TOP SCH ×2 (09:14→20:20)
[2018-05-22] MEDS: MEMANTINE 10 MG TABLET PO SCH ×2 (09:14→20:16)
[2018-05-22] MEDS: DILTIAZEM 30 MG TABLET PO SCH ×2 (09:14→20:16)
[2018-05-22] MEDS: POTASSIUM CHLORIDE 20 MEQ TABLET PO SCH (09:14)
[2018-05-22] MEDS: INSULIN LISPRO 100 UNIT/ML SUBCUT SCH ×4 (09:15→20:14)
[2018-05-22] MEDS: DEXTROSE 5% NACL 0.45% 1,000 ML IV SCH (12:42)
[2018-05-22] MEDS: DIGOXIN 0.125 MG TABLET PO SCH (12:43)
[2018-05-22 16:14] LABS: Calcium 7.7 MG/DL (8.5-10.1); Osmolality,Calculated 287.1 MOS/KG (273-304); Potassium 4.4 MMOL/L (3.5-5.1)
[2018-05-22] MEDS: cefTRIAXone 1,000 MG in SYRINGE 1 EACH IV SCH (17:12)
[2018-05-22] MEDS: ALBUTEROL/IPRATROPIUM 3 ML NEB RESP TX SCH (19:20)
[2018-05-22] MEDS: DONEPEZIL 10 MG TABLET PO SCH (20:14)
[2018-05-22] MEDS: TAMSULOSIN 0.4 MG CAPSULE PO SCH (20:14)
[2018-05-22] MEDS: ALLOPURINOL 300 MG TABLET PO SCH (20:15)
[2018-05-22] MEDS: PRIMIDONE 50 MG TABLET PO SCH (20:16)
[2018-05-22] MEDS: FINASTERIDE 5 MG TABLET PO SCH (20:16)
[2018-05-23] MEDS: ALBUTEROL/IPRATROPIUM 3 ML NEB RESP TX SCH ×4 (00:16→21:06)
[2018-05-23 04:28] LABS: Calcium 7.4 MG/DL (8.5-10.1); Osmolality,Calculated 285.3 MOS/KG (273-304); Potassium 3.9 MMOL/L (3.5-5.1)
[2018-05-23] MEDS: PANTOPRAZOLE 40 MG VIAL IV SCH ×2 (10:22→21:28)
[2018-05-23] MEDS: MEMANTINE 10 MG TABLET PO SCH ×2 (10:23→21:28)
[2018-05-23] MEDS: DILTIAZEM 30 MG TABLET PO SCH ×2 (10:23→21:30)
[2018-05-23] MEDS: MAGNESIUM CHLORIDE 64 MG TABLET PO SCH ×2 (10:23→21:29)
[2018-05-23] MEDS: ENTACAPONE 200 MG TABLET PO SCH ×4 (10:24→21:29)
[2018-05-23] MEDS: POTASSIUM CHLORIDE 20 MEQ TABLET PO SCH (10:24)
[2018-05-23] MEDS: ASCORBIC ACID 500 MG TABLET PO SCH ×2 (10:24→21:30)
[2018-05-23] MEDS: DESITIN 4OZ/NYSTATIN 15 GRAM MIXTURE PASTE TOP SCH ×2 (10:29→21:36)
[2018-05-23] MEDS: CARVEDILOL 3.125 MG TABLET PO SCH ×2 (10:31→21:29)
[2018-05-23] MEDS: CARBIDOPA/LEVODOPA CR 25-100 MG TABLET PO SCH ×4 (10:31→21:28)
[2018-05-23] MEDS: INSULIN LISPRO 100 UNIT/ML SUBCUT SCH ×4 (10:32→21:36)
[2018-05-23] MEDS: DIGOXIN 0.125 MG TABLET PO SCH (15:10)
[2018-05-23] MEDS: cefTRIAXone 1,000 MG in SYRINGE 1 EACH IV SCH (17:09)
[2018-05-23] MEDS: PRIMIDONE 50 MG TABLET PO SCH (21:28)
[2018-05-23] MEDS: ALLOPURINOL 300 MG TABLET PO SCH (21:28)
[2018-05-23] MEDS: TAMSULOSIN 0.4 MG CAPSULE PO SCH (21:28)
[2018-05-23] MEDS: DONEPEZIL 10 MG TABLET PO SCH (21:29)
[2018-05-23] MEDS: FINASTERIDE 5 MG TABLET PO SCH (21:29)
[2018-05-24] MEDS: ALBUTEROL/IPRATROPIUM 3 ML NEB RESP TX SCH ×3 (01:27→13:00)
[2018-05-24 04:31] LABS: Basophils # 0.1 10*3/uL (0.0-0.2); Basophils % 0.8 % (0.0-0.8); Eosinophils # 0.3 10*3/uL (0.0-0.87); Eosinophils % 4.1 % (0.00-10.9); Hematocrit 27.4 VOL% (42.0-52.0); Hemoglobin 8.5 GM/DL (14.0-18.0); Immature Granulocytes % 0.5 %; Immature Granulocytes Absolute 0.03 #; Lymphocytes % 14.5 % (21.2-54.2); Mean Corpuscular Hemoglobin 28 PG (27-34); Mean Corpuscular Volume 90.4 FL (87-102); Mean Platelet Volume 11.1 FL (9.6-12.0); Monocytes # 0.7 10*3/uL (0.11-0.8); Monocytes % 9.9 % (1.7-12.7); Neutrophils # 4.6 10*3/uL (1.4-7.4); Neutrophils % 70.2 % (38.7-73.9); Platelet Count 141 T/CUMM (130-400); Red Blood Count 3.03 MC/CUMM (3.8-5.5); Red Cell Distribution Width 16.8 % (9.3-17.3); White Blood Count 6.6 T/CUMM (4-12)
[2018-05-24] MEDS: INSULIN LISPRO 100 UNIT/ML SUBCUT SCH ×3 (08:54→17:03)
[2018-05-24] MEDS: CARVEDILOL 3.125 MG TABLET PO SCH (08:56)
[2018-05-24] MEDS: CARBIDOPA/LEVODOPA CR 25-100 MG TABLET PO SCH ×3 (08:56→17:04)
[2018-05-24] MEDS: ASCORBIC ACID 500 MG TABLET PO SCH (08:56)
[2018-05-24] MEDS: PANTOPRAZOLE 40 MG VIAL IV SCH (08:56)
[2018-05-24] MEDS: ENTACAPONE 200 MG TABLET PO SCH ×3 (08:57→17:04)
[2018-05-24] MEDS: DILTIAZEM 30 MG TABLET PO SCH (08:57)
[2018-05-24] MEDS: MAGNESIUM CHLORIDE 64 MG TABLET PO SCH (08:57)
[2018-05-24] MEDS: DESITIN 4OZ/NYSTATIN 15 GRAM MIXTURE PASTE TOP SCH (08:58)
[2018-05-24] MEDS: POTASSIUM CHLORIDE 20 MEQ TABLET PO SCH (08:58)
[2018-05-24] MEDS: MEMANTINE 10 MG TABLET PO SCH (09:18)
[2018-05-24] MEDS: DIGOXIN 0.125 MG TABLET PO SCH (13:55)
[2018-05-24 16:19] VITALS: BP 104/60
[2018-05-24] MEDS: cefTRIAXone 1,000 MG in SYRINGE 1 EACH IV SCH (17:02)
== END 2018-05-24 16:45 | DRG 377 ==
LOC: EDUNIT# → EDBD → N.ED 14:56 → SUATTDRO 16:30 → N.EDINP 16:30 → N.4E 18:48 → N.ICU 05-18 09:42 → N.TELES 05-21 20:24
PROVIDERS: ADMIT Internal Medicine Nephrology; ATTEND Internal Medicine